=== PATIENT | male | born 1975 | race Caucasian/White ===

== ENCOUNTER 2017-05-07 10:27 | Emergency (ER) | payer MEDICAID, OTHER ==
--- NOTE | 2017-05-07 10:39 | ED Physician Chart ---
Chief Complaint/HPI - Patient Information Date Seen:: 05/07/17 Time Seen:: 10:39 Chief Complaint:: INJURY TO RT INDEX FINGER LAST PM History of Present Illness:: This 41-year-old male presents with blunt trauma to the distal right index finger that occurred last evening. It happened when the patient was slamming down a phone onto a desk. Patient rates the pain as 10 over 10 severity and it has a throbbing quality. Pain is relieved somewhat by elevation. The injury was accompanied by an abrasion of the skin just adjacent to the nail and ecchymotic discoloration of the finger pad. Patient has full range of motion of the DIP and the PIP joints. Allergies:: Allergies Allergy/AdvReac Type Severity Reaction Status Date / Time No Known Allergies Allergy Verified 10/02/16 08:26 Vitals:: Vital Signs - 8 hr 05/07/17 10:34 Temp 98.2 F HR 84 RR 16 BP 143/78 O2 Sat % 97 Review of Systems - Review of Systems General/Constitutional: No fever, No chills, No weakness Skin: Other (abrasion just proximal to the fingernail of the right index finger. ) Head: No headache Eyes: No loss of vision ENT: No earache Neck: No neck pain, No mass noted Cardio Vascular: No chest pain, No palpitations, No orthopnea, No edema Pulmonary: No SOB, No cough, No sputum GI: No nausea, No vomiting, No diarrhea, No pain G/U: No dysuria, No frequency, No hematuria Musculoskeletal: Bone or joint pain (severe pain in the finger pad region of the right index finger.) Endocrine: No polyuria, No polydipsia Psychiatric: No prior psych history, No suicidal ideation Hematopoietic: No bruising Allergic/Immuno: No urticaria, No angioedema Neurological: No syncope, No weakness, No headache, No seizure, No confusion, No vertigo Past Medical History - Past Medical History Past Medical History: No significant medical hx Social History: Non Smoker, No Alcohol, No Drug Use, Single, Employed Family Medical History - Family Member Father History Unknown: Yes Ethnicity: Living Status: Hx Family Cancer: No Hx Family Coronary Artery Disease: No Hx Family Congestive Heart Failure: No Hx Family Hypertension: No Hx Family Diabetes: Yes Hx Family Seizures: No Hx Family Dementia: No Hx Family AIDS: No Hx Family HIV: No Hx Family COPD: No Hx Family Hepatitis: No Hx Family Psychiatric Problems: No Hx Family Tuberculosis: No Physical Exam - Physical Examination General/Constitutional: Awake, Well-developed, well-nourished, Alert, Non-toxic appearing, Ambulatory Head: Atraumatic Eyes: Lids, conjuctiva normal, PERRL, EOMI Skin: No rash, No ecchymosis, Well hydrated ENMT: External ears, nose nl, Oropharynx nl, Tonsils nl Neck: Nontender, Full ROM w/o pain, No nuchal rigidity, No bruit, No mass Respiratory: Nl effort/Exclusion, Clear to Auscultation Cardio Vascular: RRR, No murmur, gallop, rubs, NL S1 S2, Carotid/Femoral/Distal pulses equal bilaterally GI: No tenderness/rebounding/guarding, No organomegaly, No hernia, No McBurney tenderness : No CVA tenderness Extremities: No edema Other Extremities comments:: The patient has an abrasion and loose flap of skin along with dried blood over the distal portion of the finger adjacent to the nail. No laceration was present. No subungal hematoma. No avulsion of the nail bed. Neuro/Psych: Alert/oriented, Normal sensory exam, Normal motor strength, Mood normal, Normal gait Labs/Radiology/EKG Results - Lab Results Results: 3 views of the right index finger: no fracture or Dislocation. No soft tissue swelling. Impression: no acute traumatic findings. Assessment - Assessment General Assessment: The flap of skin was debrided using forceps and scissors. The abrasion area was clean the blood and irrigated with normal saline. Nursing dress the lesion. Patient was discharged in stable condition. MDM BLUNT INJURY TO RT INDEX FINGER DDX: NO CLOSED FRACTURE Based on x-ray finding. NO Open Fracture based on physical examination. NO Sub-ungal Hematoma based on physical exam. ED Septic Shock - . Is Septic Shock (SBP<90, OR Lactate>4 mmol\L) present?: No - <6hrs of presentation: Vital Signs: Vital Signs - 8 hr 05/07/17 10:34 Temp 98.2 F HR 84 RR 16 BP 143/78 O2 Sat % 97 Reassessment (Disposition) - Reassessment Reassessment Condition:: Improved - Diagnosis Diagnosis:: ABRASION/CONTUSION RT INDEX FINGER TIP. - Aftercare/Follow up Instructions Aftercare/Follow-Up Instructions:: Counseled pt regarding lab results/diagnosis & need follow up - Patient Disposition Discharge/Transfer:: Home ED Discharge Plan - Patient Disposition Admit/Discharge/Transfer: PT DISCHARGED HOME Condition at Disposition: Improved Instructions: Contusion Accepting Physician: Martín Curtis [Active] -
[2017-05-07] MEDS ORDERED: Bacitracin pkt 1 gm Pkt TP ONE (11:25)
[2017-05-07] MEDS ORDERED: Bacitracin pkt 1 gm Pkt TP STA (11:44)
--- NOTE | 2017-05-08 09:41 | Diagnostic Imaging Report ---
Exam: Right index finger 3 views. HISTORY: Injury Findings: Multiple views of right index finger reviewed. The study demonstrates no evidence for acute fracture dislocation. Subcutaneous soft tissue swelling is noted on the dorsal aspect of distal right right index finger. IMPRESSION: Essentially unremarkable examination right index finger area.
== END 2017-05-07 11:45 | disposition home or self-care (01) ==
LOC: ER 10:27
DX: S69.91XA Unspecified injury of right wrist, hand and finger(s), initial encounter (principal); X58.XXXA Exposure to other specified factors, initial encounter; Y93.89 Activity, other specified; Y92.89 Other specified places as the place of occurrence of the external cause; Y99.8 Other external cause status
CPT/HCPCS: 99284; 73140; Z7610; A4217; Z7502

== ENCOUNTER 2018-03-18 16:42 | Emergency (ER) | payer MEDICAID ==
[2018-03-18] MEDS ORDERED: Sodium Chloride 0.9% 1,000 ML IV ONE (17:03)
[2018-03-18] MEDS ORDERED: Haloperidol Lactate 5 mg/mL 1mL Vial IVP ONE (17:05)
[2018-03-18] MEDS ORDERED: Haloperidol Lactate 5 mg/mL 1mL Vial ONE (17:14)
[2018-03-18 17:17] LABS: % BASOPHILS 0.7 % (0.0-2.0); % LYMPHOCYTES 11.6 % (20.0-50.0); % MONOCYTES 4.8 % (2.0-10.0); % NEUTROPHILS 81.9 % (40.0-80.0); BASOPHILE ABSOLUTE 0.1 Th/cumm (0-0.2); EOSINOPHILE ABSOLUTE 0.1 Th/cmm (0.1-0.4); HEMATOCRIT 42.7 % (41.0-60); HEMOGLOBIN 14.2 gm/dL (12-16); LYMPHOCYTE ABSOLUTE 0.9 Th/cmm (1.5-3.0); MEAN CELL VOLUME 94.2 fl (80-99); MEAN CORPUSCULAR HEMOGLOBIN 31.5 pg (26.0-30.0); MEAN CORPUSCULAR HGB CONC 33.4 pg (28.0-36.0); MONOCYTE ABSOLUTE 0.4 Th/cmm (0.3-1.0); NEUTROPHILE ABSOLUTE 6.5 Th/cmm (1.8-8.0); PLATELET COUNT 238 Th/cmm (150-400); RED BLOOD COUNT 4.53 Mil/cmm (4.30-5.70); RED CELL DISTRIBUTION WIDTH 12.6 % (11.5-20.0)
--- NOTE | 2018-03-18 17:20 | ED Physician Chart ---
ED Chief Complaint/HPI - Patient Information Date Seen:: 03/18/18 Time Seen:: 17:00 Chief Complaint:: VOMITING History of Present Illness:: THIS IS A 42 YR OLD MALE BIB EMS FROM HOME BECAUSE OF VOMITING AND ABDOMINAL PAIN. HE STATES THAT HE IS DIABETIC AND HAS BEEN SMOKING THC BUT DENIES OTHER DRUGS AND ALCOHOL. HE DENIES DIARRHEA AND CONSTIPATION. HE DENIES HAVING PROBLEMS URINATING. HE DENIES A HISTORY OF HEART DISEASE AND HYPERTENSION. Allergies:: Allergies Allergy/AdvReac Type Severity Reaction Status Date / Time No Known Allergies Allergy Verified 10/02/16 08:26 Vitals:: Vital Signs - 8 hr 03/18/18 16:53 Temp 97.5 F HR 102 RR 28 BP 148/90 O2 Sat % 100 Historian:: Patient, EMS, Family Member () Review:: Nurse's Note Reviewed ED Review of Systems - Review of Systems General/Constitutional: No fever, No chills, No weight loss, No weakness, No diaphoresis, No edema, No loss of appetite Skin: No skin lesions, No rash, No bruising Head: No headache, No light-headedness Eyes: No loss of vision, No pain, No diplopia ENT: No earache, No nasal drainage, No sore throat, No tinnitus Neck: No neck pain, No swelling, No thyromegaly, No stiffness, No mass noted Cardio Vascular: No chest pain, No palpitations, No PND, No orthopnea, No edema Pulmonary: No SOB, No cough, No sputum, No wheezing GI: Nausea, Vomiting, No vomiting, No diarrhea, Pain, No melena, No hematochezia , No constipation, No hematemesis G/U: No dysuria, No frequency, No hematuria Musculoskeletal: No bone or joint pain, No back pain, No muscle pain Endocrine: No polyuria, No polydipsia Psychiatric: No prior psych history, No depression, No anxiety, No suicidal ideation Hematopoietic: No bruising, No lymphadenopathy Allergic/Immuno: No urticaria, No angioedema Neurological: No syncope, No focal symptoms, No weakness, No paresthesia, No headache, No seizure, No dizziness, No confusion, No vertigo ED Past Medical History - Past Medical History Obtainable: Yes Past Medical History: DM Family History: None Social History: Non Smoker, No Alcohol, Illicit Drug Use (THC BUT DID USE OTHER DRUGS IN THE PAST.) Surgical History: None Psychiatricy History: None Medication: Reviewed Family Medical History - Family Member Father History Unknown: Yes Ethnicity: Living Status: Hx Family Cancer: No Hx Family Coronary Artery Disease: No Hx Family Congestive Heart Failure: No Hx Family Hypertension: No Hx Family Diabetes: Yes Hx Family Seizures: No Hx Family Dementia: No Hx Family AIDS: No Hx Family HIV: No Hx Family COPD: No Hx Family Hepatitis: No Hx Family Psychiatric Problems: No Hx Family Tuberculosis: No ED Physical Exam - Physical Examination General/Constitutional: Awake, Well-developed, well-nourished, Alert, No distress, GCS 15, Non-toxic appearing, Ambulatory Head: Atraumatic Eyes: Lids, conjuctiva normal, PERRL, EOMI Skin: Nl inspection, No rash, No skin lesions, No ecchymosis, Well hydrated, No lymphadenopathy ENMT: External ears, nose nl, Nasal exam nl, Lips, teeth, gums nl Neck: Nontender, Full ROM w/o pain, No JVD, No nuchal rigidity, No bruit, No mass, No stridor Respiratory: Nl effort/Exclusion, Clear to Auscultation, No Wheeze/Rhonchi/Rales Cardio Vascular: RRR, No murmur, gallop, rubs, NL S1 S2 GI: No tenderness/rebounding/guarding (THERE WAS TENDERNESS OF THE UPPER AND LOWER ABDOMEN), No organomegaly, No hernia, Normal BS's, Nondistended, No mass/ bruits, No McBurney tenderness : No CVA tenderness Extremities: No tenderness or effusion, Full ROM, normal strength in all extremities, No edema, Normal digits & nails Neuro/Psych: Alert/oriented, DTR's symmetric, Normal sensory exam, Normal motor strength, Judgement/insight normal, Mood normal, Normal gait, No focal deficits Misc: Normal back, No paraspinal tenderness ED Labs/Radiology/EKG Results - Lab Results Results: Abnormal Lab Results 03/18/18 03/18/18 03/18/18 17:10 17:10 17:10 WBC 8.0 RBC 4.53 Hgb 14.2 Hct 42.7 MCV 94.2 MCH 31.5 H MCHC Differential 33.4 RDW 12.6 Plt Count 238 MPV 8.0 Neutrophils % 81.9 H Lymphocytes % 11.6 L Monocytes % 4.8 Eosinophils % 1.0 Basophils % 0.7 PT 10.2 INR 0.98 PTT (Actin FS) 29.0 Sodium 136 Potassium 3.5 Chloride 101 Carbon Dioxide 24.0 Anion Gap 14.5 BUN 16 Creatinine 0.8 Est GFR ( Amer) > 60.0 Est GFR (Non-Af Amer) > 60.0 BUN/Creatinine Ratio 20.0 Glucose 173 H Calcium 10.3 Total Bilirubin 0.8 AST 28 ALT 35 Alkaline Phosphatase 76 Troponin I Total Protein 7.3 Albumin 4.7 Globulin 2.6 Albumin/Globulin Ratio 1.8 Amylase 56 Lipase 70 TSH Urine Source Urine Color Urine Clarity Urine pH Ur Specific Walsh Urine Protein Urine Glucose (UA) Urine Ketones Urine Blood Urine Nitrate Urine Bilirubin Urine Urobilinogen Ur Leukocyte Esterase Urine RBC Urine WBC Ur Epithelial Cells Urine Bacteria Urine Opiates Screen Urine Methadone Screen Ur Barbiturates Screen Ur Tricyclics Screen Ur Phencyclidine Scrn Amphetamines Screen U Methamphetamines Scrn U Benzodiazepines Scrn U Cocaine Metab Screen U Cannabinoids Screen Ethyl Alcohol < 10 03/18/18 03/18/18 03/18/18 17:10 17:10 17:30 WBC RBC Hgb Hct MCV MCH MCHC Differential RDW Plt Count MPV Neutrophils % Lymphocytes % Monocytes % Eosinophils % Basophils % PT INR PTT (Actin FS) Sodium Potassium Chloride Carbon Dioxide Anion Gap BUN Creatinine Est GFR ( Amer) Est GFR (Non-Af Amer) BUN/Creatinine Ratio Glucose Calcium Total Bilirubin AST ALT Alkaline Phosphatase Troponin I < 0.01 L Total Protein Albumin Globulin Albumin/Globulin Ratio Amylase Lipase TSH 2.25 Urine Source Urine Color Urine Clarity Urine pH Ur Specific Walsh Urine Protein Urine Glucose (UA) Urine Ketones Urine Blood Urine Nitrate Urine Bilirubin Urine Urobilinogen Ur Leukocyte Esterase Urine RBC Urine WBC Ur Epithelial Cells Urine Bacteria Urine Opiates Screen NEGATIVE Urine Methadone Screen NEGATIVE Ur Barbiturates Screen NEGATIVE Ur Tricyclics Screen NEGATIVE Ur Phencyclidine Scrn NEGATIVE Amphetamines Screen NEGATIVE U Methamphetamines Scrn NEGATIVE U Benzodiazepines Scrn NEGATIVE U Cocaine Metab Screen NEGATIVE U Cannabinoids Screen POSITIVE H Ethyl Alcohol 03/18/18 17:30 WBC RBC Hgb Hct MCV MCH MCHC Differential RDW Plt Count MPV Neutrophils % Lymphocytes % Monocytes % Eosinophils % Basophils % PT INR PTT (Actin FS) Sodium Potassium Chloride Carbon Dioxide Anion Gap BUN Creatinine Est GFR ( Amer) Est GFR (Non-Af Amer) BUN/Creatinine Ratio Glucose Calcium Total Bilirubin AST ALT Alkaline Phosphatase Troponin I Total Protein Albumin Globulin Albumin/Globulin Ratio Amylase Lipase TSH Urine Source CLEAN C Urine Color YELLOW Urine Clarity CLEAR Urine pH 6.5 Ur Specific Walsh 1.020 Urine Protein NEGATIVE Urine Glucose (UA) NEGATIVE Urine Ketones TRACE Urine Blood NEGATIVE Urine Nitrate NEGATIVE Urine Bilirubin NEGATIVE Urine Urobilinogen 0.2 Ur Leukocyte Esterase NEGATIVE Urine RBC NONE SEEN Urine WBC NONE SEEN Ur Epithelial Cells NONE SEEN Urine Bacteria NONE SEEN Urine Opiates Screen Urine Methadone Screen Ur Barbiturates Screen Ur Tricyclics Screen Ur Phencyclidine Scrn Amphetamines Screen U Methamphetamines Scrn U Benzodiazepines Scrn U Cocaine Metab Screen U Cannabinoids Screen Ethyl Alcohol - Radiology Results Results: CHEST X-RAY = NAD - EKG Interpretations EKG Time:: 16:58 Rate & Rhythm: RATE= 102, SINUS [place]: RIGHT Comments:: NO ECTOPY SEEN ED Assessment - Assessment General Assessment: GASTRITIS ED Septic Shock - . Is Septic Shock (SBP<90, OR Lactate>4 mmol\L) present?: No - <6hrs of presentation: Vital Signs: Vital Signs - 8 hr / 16:53 Temp 97.5 F HR 102 RR 28 BP 148/90 O2 Sat % 100 ED Reassessment (Disposition) - Reassessment Reassessment:: GASTRITIS Reassessment Condition:: Improved - Diagnosis Diagnosis:: GASTRITIS - Aftercare/Follow up Instructions Aftercare/Follow-Up Instructions:: Counseled pt regarding lab results/diagnosis & need follow up, Refer to Discharge Instructions, Counseled pt & family regarding lab results/diagnosis & need follow up Medication Prescribed:: PEPCID - Patient Disposition Discharge/Transfer:: Home Condition at Disposition:: Improved ED Discharge Plan - Patient Disposition Admit/Discharge/Transfer: PT DISCHARGED HOME Condition at Disposition: Improved Instructions: Type 2 Diabetes Mellitus, Adult, Marijuana Abuse-Brief, Gastroparesis Additional Instructions: Follow up with your Primary Care Doctor. If symptoms return or worsen, return to Emergency Department. Take all medications as directed. Accepting Physician: Hood Nelson [Active] -
[2018-03-18 17:36] LABS: ALB/GLOB RATIO 1.8 (1.0-1.8); ALBUMIN 4.7 gm/dL (4.2-5.5); ALKALINE PHOSPHATASE 76 U/L (34-104); AMYLASE SERUM 56 U/L (29-103); ANION GAP 14.5 (7.0-16.0); BILIRUBIN,TOTAL 0.8 mg/dL (0.3-1.0); BUN - UREA NITROGEN 16 mg/dL (7-25); CALCIUM SERUM 10.3 mg/dL (8.6-10.3); CHLORIDE 101 mEq/L (98-107); CREATININE - SERUM 0.8 mg/dL (0.7-1.3); GFR AFRICAN-AMERICAN > 60.0 ml/min (>90); GFR NON AFRICAN-AMERICAN > 60.0 ml/min; GLUCOSE 173 mg/dL (70-105); LIPASE 70 U/L (11-82); POTASSIUM SERUM 3.5 mEq/L (3.5-5.1); SGOT 28 U/L (13-39); SGPT/ALT 35 U/L (7-52); SODIUM SERUM 136 mEq/L (136-145); TOTAL PROTEIN,SERUM 7.3 gm/dL (6.0-8.3)
[2018-03-18 17:37] LABS: URINE MICROSCOPIC INDICATED? YES; URINE SOURCE CLEAN C
[2018-03-18 17:38] LABS: INR 0.98 (0.5-1.4); PROTHROMBIN TIME (TEST) 10.2 SECONDS (9.5-11.5)
[2018-03-18 17:39] LABS: URINE BILIRUBIN NEGATIVE (NEGATIVE); URINE BLOOD NEGATIVE (NEGATIVE); URINE GLUCOSE (UA) NEGATIVE (NEGATIVE); URINE KETONE TRACE mg/dL (NEGATIVE); URINE LEUKOCYTE ESTERASE NEGATIVE (NEGATIVE); URINE NITRATE NEGATIVE (NEGATIVE); URINE PH 6.5 (4.6 - 8.0); URINE PROTEIN NEGATIVE (NEGATIVE); URINE UROBILINOGEN 0.2 E.U./dL (0.2 - 1.0)
[2018-03-18 17:43] LABS: URINE CLARITY CLEAR (CLEAR); URINE COLOR YELLOW
[2018-03-18 17:44] LABS: URINE BACTERIA NONE SEEN /hpf (NONE SEEN); URINE EPITHELIAL CELLS NONE SEEN /lpf (FEW); URINE RBC NONE SEEN /hpf (0-5); URINE WBC NONE SEEN /hpf (0-5)
[2018-03-18 18:07] LABS: AMPHETAMINE URINE NEGATIVE (NEGATIVE); BARBITURATES URINE NEGATIVE (NEGATIVE); BENZODIAZEPINES QUAL URINE NEGATIVE (NEGATIVE); CANNABINOID THC POSITIVE (NEGATIVE); COCAINE METABOLITE QUAL URINE NEGATIVE (NEGATIVE); METHADONE URINE NEGATIVE (NEGATIVE); METHAMPHETAMINES QUAL URINE NEGATIVE (NEGATIVE); OPIATES (MORPHINE) QUAL. URINE NEGATIVE (NEGATIVE); PHENCYCLIDINE (PCP) URINE NEGATIVE (NEGATIVE); TRICYCLICS (TCA) QUAL. URINE NEGATIVE (NEGATIVE)
--- NOTE | 2018-03-19 09:32 | Diagnostic Imaging Report ---
Portable chest x-ray History: Pain Allowing for portable technique the heart size is normal. No focal pulmonary parenchymal processes. No hilar or mediastinal abnormalities. Impression: No acute abnormalities.
== END 2018-03-18 18:45 | disposition home or self-care (01) ==
LOC: ER 16:42
DX: K29.70 Gastritis, unspecified, without bleeding (principal); E11.9 Type 2 diabetes mellitus without complications
CPT/HCPCS: 99285; 96372; 96374; 96375; 93005; 71045; 84484; 36415; 80307; 84443; 85025; 85610; 85730; 81001; 80320; 82150; 83690; 80053; 87040 ×2; J1885; J2060; J2405; J1630; J7030